=== PATIENT | male | born 1990 | race Caucasian/White ===

== ENCOUNTER 2017-11-21 16:08 | Emergency (ER) | payer BC ==
[~2017-11-21] VITALS: Ht 182.8 cm; Wt 113.4 kg
[~2017-11-21 16:08] MED LIST: BACITRACIN 500U30 GM OPH; NKHM; TOBRADEX 0.1%-0.5 ML OPH; ZITHROMAX Z PA250 MG PO
[2017-11-21] MEDS ORDERED: CHLORZOXAZONE500 M2 PO (16:16)
[2017-11-21] MEDS ORDERED: NAPROSYN500 MG PO (16:16)
== END 2017-11-21 17:36 | disposition home or self-care (01) ==
LOC: ED 16:08
DX: R07.81 Pleurodynia (principal); R03.0 Elevated blood-pressure reading, without diagnosis of hypertension; Z88.1 Allergy status to other antibiotic agents

== ENCOUNTER → 2018-10-16 | Outpatient (CLI) | payer BC ==
[~2018-10-16] MED LIST changes: +CHLORZOXAZONE500 M2 PO; +NAPROSYN500 MG PO; +NORCO 5-325 TA1 EACH PO
[2018-10-16 14:46] LABS: BASO % 0.5 % (0.0-1.0); EOS # 0.3 10*3/uL (0.0-0.4); EOS % 3.3 % (1.0-4.0); HEMOGLOBIN 15.9 g/dl (14.0-18.0); LYMPH % 23.8 % (27.0-41.0); MEAN CELL VOLUME 93.4 fl (80.0-94.0); MEAN CORPUSCULAR HGB CONC 35.3 g/dl (33.0-37.0); MONO # 0.5 10*3/uL (0.1-1.0); MONO % 6.2 % (3.0-9.0); NEUT # 5.6 10*3/uL (2.3-7.9); PLATELET COUNT AUTOMATED 249 10*3/uL (130-400); RED BLOOD COUNT 4.82 10*6/uL (4.50-5.90); RED CELL DISTRI WIDTH 12.8 % (0-14.5); WHITE BLOOD COUNT 8.5 10*3/uL (4.8-10.8)
[2018-10-16 15:15] LABS: BUN 15 mg/dl (7-24); CHLORIDE 106 mmol/L (98-107); CREATININE 0.94 mg/dL (0.70-1.30); POTASSIUM 3.7 mmol/L (3.5-5.1); SODIUM 141 mmol/L (136-145)
== END | disposition home or self-care (01) ==
LOC: LAB 14:06
PROVIDERS: Surgery
DX: P38.9 Omphalitis without hemorrhage (principal)

== ENCOUNTER → 2018-10-22 | Day surgery (SDC) | payer BC ==
[2018-10-16 14:24] VITALS: BP 157/96
[~2018-10-22] VITALS: Ht 182.8 cm; Wt 120.2 kg
[2018-10-22 07:30] VITALS: BP 155/88
[2018-10-22 09:30] VITALS: BP 145/82
[2018-10-22 09:45] VITALS: BP 141/79
[2018-10-22 10:00] VITALS: BP 129/70
[2018-10-22 10:15] VITALS: BP 119/74
[2018-10-22 10:31] VITALS: BP 111/68
== END | disposition home or self-care (01) ==
LOC: SDC 10-16 13:15 → EDSTATUS 10-16 14:00 → SDC 01:49
DX: K63.2 Fistula of intestine (principal); L72.0 Epidermal cyst; E66.01 Morbid (severe) obesity due to excess calories; Z68.43 Body mass index [BMI] 50.0-59.9, adult; Z79.899 Other long term (current) drug therapy; Z88.1 Allergy status to other antibiotic agents; Z88.8 Allergy status to other drugs, medicaments and biological substances

== ENCOUNTER 2019-10-02 22:59 | Emergency (ER) | payer OTHER ==
[~2019-10-02] VITALS: Ht 185.4 cm; Wt 117.9 kg
[2019-10-04] MEDS ORDERED: CEPHALEXIN500 M1 PO (22:35)
== END 2019-10-03 00:20 | disposition home or self-care (01) ==
LOC: ED 22:59
DX: S51.812A Laceration without foreign body of left forearm, initial encounter (principal); Z88.1 Allergy status to other antibiotic agents; W45.8XXA Other foreign body or object entering through skin, initial encounter; Y93.89 Activity, other specified; Y92.89 Other specified places as the place of occurrence of the external cause; Y99.8 Other external cause status

== ENCOUNTER 2019-10-04 21:37 | Emergency (ER) | payer OTHER ==
[~2019-10-04] VITALS: Ht 185.4 cm; Wt 117.0 kg
[2019-10-04] MEDS ORDERED: CEPHALEXIN500 M1 PO (22:35)
== END 2019-10-04 22:39 | disposition home or self-care (01) ==
LOC: ED 21:37
DX: S51.811D Laceration without foreign body of right forearm, subsequent encounter (principal); Z88.8 Allergy status to other drugs, medicaments and biological substances; Z79.899 Other long term (current) drug therapy; X58.XXXD Exposure to other specified factors, subsequent encounter

== ENCOUNTER 2023-06-22 13:19 | Emergency (ER) | payer BC ==
[~2023-06-22] VITALS: Ht 185.4 cm; Wt 117.9 kg
[~2023-06-22 13:19] MED LIST changes: +CEPHALEXIN500 M1 PO; +COLACE100 MG PO; +CYCLOBENZAPRINE10 MG PO; +HYDROCODONE-AC1 EAC1 PO; +ONDANSETRON HYDR4 M1 PO; +ZOLOFT25 MG PO
[2023-06-22] MEDS ORDERED: Acetaminophen/Hydrocodone 5 MG/325 MG TABLET PO ONE (13:30)
[2023-06-22] MEDS ORDERED: MELOXICAM7.5 MG PO (14:52)
== END 2023-06-22 14:56 | disposition home or self-care (01) ==
LOC: ED 13:19
DX: M25.512 Pain in left shoulder (principal); F41.9 Anxiety disorder, unspecified; Z88.1 Allergy status to other antibiotic agents; Z88.0 Allergy status to penicillin; Z98.890 Other specified postprocedural states; Z90.89 Acquired absence of other organs

== ENCOUNTER → 2023-06-27 | Outpatient (CLI) | payer BC ==
[~2023-06-27] MED LIST changes: +MELOXICAM7.5 MG PO
== END ==
LOC: MRI 06-24 13:00
PROVIDERS: ATTEND Chiropractor
DX: M75.52 Bursitis of left shoulder (principal); M75.102 Unspecified rotator cuff tear or rupture of left shoulder, not specified as traumatic

== ENCOUNTER → 2024-03-22 | Outpatient (CLI) | payer BC ==
[2024-03-22 15:04] LABS: BASO % 0.6 % (0.0-1.0); EOS # 0.2 10*3/uL (0.0-0.4); EOS % 2.3 % (1.0-4.0); HEMATOCRIT 47.5 % (42.0-52.0); MEAN CORPUSCULAR HGB 31.8 pg (27.0-31.0); MEAN CORPUSCULAR HGB CONC 35.8 g/dl (33.0-37.0); MEAN PLATELET VOLUME 10.1 fl (9.6-12.3); MONO # 0.4 10*3/uL (0.1-1.0); MONO % 5.9 % (3.0-9.0); NEUT # 3.8 10*3/uL (2.3-7.9); NEUT % 59.9 % (47.0-73.0); PLATELET COUNT AUTOMATED 269 10*3/uL (130-400); RED BLOOD COUNT 5.34 10*6/uL (4.50-5.90); RED CELL DISTRI WIDTH 13.2 % (0-14.5); WHITE BLOOD COUNT 6.4 10*3/uL (4.8-10.8)
== END | disposition home or self-care (01) ==
LOC: LAB 14:19
PROVIDERS: ATTEND Nurse Practitioner Family
DX: R89.1 Abnormal level of hormones in specimens from other organs, systems and tissues (principal)

== ENCOUNTER 2024-03-31 20:43 | Emergency (ER) | payer BC ==
[~2024-03-31] VITALS: Ht 185.4 cm; Wt 129.3 kg
[2024-03-31 21:44] LABS: BASO # 0.1 10*3/uL (0.0-0.1); BASO % 0.7 % (0.0-1.0); EOS # 0.1 10*3/uL (0.0-0.4); HEMATOCRIT 44.9 % (42.0-52.0); MEAN CELL VOLUME 90.7 fl (80.0-94.0); MEAN CORPUSCULAR HGB 31.7 pg (27.0-31.0); MEAN PLATELET VOLUME 9.5 fl (9.6-12.3); MONO # 0.5 10*3/uL (0.1-1.0); NEUT # 4.2 10*3/uL (2.3-7.9); NEUT % 59.6 % (47.0-73.0); PLATELET COUNT AUTOMATED 245 10*3/uL (130-400); RED BLOOD COUNT 4.95 10*6/uL (4.50-5.90); WHITE BLOOD COUNT 7.1 10*3/uL (4.8-10.8)
[2024-03-31 22:02] LABS: BUN 11 mg/dl (9-23); CHLORIDE 105 mmol/L (98-107); POTASSIUM 3.7 mmol/L (3.4-5.1)
== END 2024-03-31 22:44 | disposition home or self-care (01) ==
LOC: ED 20:43
PROVIDERS: Physician Assistant Medical
DX: I10 Essential (primary) hypertension (principal); F41.9 Anxiety disorder, unspecified; Z88.1 Allergy status to other antibiotic agents; Z88.0 Allergy status to penicillin; Z90.89 Acquired absence of other organs; Z98.890 Other specified postprocedural states

== ENCOUNTER → 2025-01-19 | Outpatient (CLI) | payer BC ==
[2025-01-19 11:14] LABS: BASO # 0.1 10*3/uL (0.0-0.1); BASO % 0.8 % (0.0-1.0); EOS # 0.2 10*3/uL (0.0-0.4); EOS % 2.7 % (1.0-4.0); MEAN CELL VOLUME 91.8 fl (80.0-94.0); MEAN CORPUSCULAR HGB 32.6 pg (27.0-31.0); MEAN PLATELET VOLUME 9.3 fl (9.6-12.3); MONO # 0.4 10*3/uL (0.1-1.0); MONO % 6.7 % (3.0-9.0); NEUT # 3.1 10*3/uL (2.3-7.9); NEUT % 48.6 % (47.0-73.0); NUCLEATED RED BLOOD CELL 0.0 % (0.0-0.0); NUCLEATED RED BLOOD CELL 0.0 10*3/uL (0.0-0.0); PLATELET COUNT AUTOMATED 256 10*3/uL (130-400); RED CELL DISTRI WIDTH 13.3 % (0-14.5)
[2025-01-19 12:14] LABS: BUN 12 mg/dl (9-23); LDL CHOLESTEROL 103 mg/dL (9-159); SGPT/ALT 69 U/L (5-49)
[2025-01-19 12:19] LABS: VITAMIN D, 25-HYDROXY 58.4 ng/mL (30-100)
[2025-01-21 12:07] LABS: TESTOS, FREE 24.4 pg/mL (8.7-25.1)
== END | disposition home or self-care (01) ==
LOC: LAB 10:35
PROVIDERS: ATTEND Nurse Practitioner Family
DX: Z13.220 Encounter for screening for lipoid disorders (principal); F41.8 Other specified anxiety disorders; E55.9 Vitamin D deficiency, unspecified; E53.8 Deficiency of other specified B group vitamins; R79.89 Other specified abnormal findings of blood chemistry